=== PATIENT | male | born 1945 | race Caucasian/White ===

== ENCOUNTER → 2018-11-03 | Outpatient (CLI) | payer MEDICARE, OTHER ==
[~2018-11-03] MED LIST: IOPAMIDOL 370 MG/ML 200 ML INFUS..BTL INJ ONE; SODIUM CHLORIDE 0.9% 250ML 250 ML ONE
[2018-11-03 09:12] LABS: BLOOD UREA NITROGEN 17 mg/dL (7-26); BUN/CREATININE RATIO 20 (6-25); CREATININE, SERUM 0.84 mg/dL (0.72-1.25); EST GLOMERULAR FILTRATION RATE > 60 ML/MIN (60-)
--- NOTE | 2018-11-03 12:23 | Diagnostic Imaging Report ---
EXAM: CT Abdomen and Pelvis WITHOUT and WITH contrast INDICATION: Hematuria COMPARISON: None. TECHNIQUE: Abdomen and pelvis were scanned utilizing a multidetector helical scanner from the lung base to the pubic symphysis before and after administration of IV contrast. Coronal and sagittal reformations were obtained. CT urogram protocol was performed. Axial imaging was performed prone. Volume rendered 3-d imaging of the kidneys and bladder was created. Dose modulation, iterative reconstruction, and/or weight based adjustment of the mA/kV was utilized to reduce the radiation dose to as low as reasonably achievable. IV CONTRAST: 100 mL of Isovue-370 ORAL CONTRAST: 900 cc water RADIATION DOSE: Total DLP: 1716.74 mGy*cm Estimated effective dose: (DLP x 0.015 x size factor) mSv COMPLICATIONS: None FINDINGS: LINES and TUBES: None. LOWER THORAX: Lung bases clear with dependent lower lobe atelectasis. Borderline cardiomegaly with extensive coronary artery calcification noted. HEPATOBILIARY: No focal hepatic lesions. No biliary ductal dilation. GALLBLADDER: No radio-opaque stones or sludge. No wall thickening. SPLEEN: No splenomegaly. PANCREAS: No focal masses or ductal dilatation. ADRENALS: No adrenal nodules KIDNEYS/URETERS: Kidneys enhance symmetrically. No hydronephrosis. There are bilateral subcentimeter cortical hypodensities, measuring 0.7 and 0.6 cm at the upper pole right kidney, and 0.6 cm at the anterior midportion left kidney. There are additional smaller hypodensities as well. These are too small to fully characterize but likely represent small renal cysts. No solid or enhancing mass identified. There are central calcifications in both kidneys likely representing vascular calcifications. 2 adjacent rounded 4 mm calcifications at the midportion of the right kidney (series 3, image 80) may represent nonobstructing intrarenal calculi on the right. The ureters are well opacified bilaterally without dilatation or calculus. GI TRACT: No abnormal distention, wall thickening, or evidence of bowel obstruction. There is a large volume of retained stool in the colon and particularly in the rectum which may reflect constipation. There are scattered sigmoid diverticula with no CT evidence for acute diverticulitis. A small portion of nondilated transverse colon extends into the ventral hernia in the upper abdomen. Appendix is normal. PELVIC ORGANS/BLADDER: Urinary bladder unremarkable. No bladder calculi seen. LYMPH NODES: No lymphadenopathy. VESSELS: The abdominal aorta is atherosclerotic. There is an infrarenal abdominal aortic aneurysm measuring 3.1 x 3.4 cm diameter. Originating at this level there is an aorto bifemoral bypass which is patent. 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 There are stents in the bilateral occluded [place] common iliac arteries. The IVC is unremarkable. The portal system is not well evaluated due to bolus timing but is patent. PERITONEUM / RETROPERITONEUM: No pneumoperitoneum or ascites. BONES: There are wire sternotomy sutures. There are degenerative changes in the lumbar spine with age indeterminate 40% compression of the L4 vertebral body and marked disc space narrowing at multiple levels. SOFT TISSUES: Superficial surrounding soft tissue shows a small umbilical hernia containing fat. There is a fat-containing ventral hernia on the right just above the umbilicus. In the upper abdomen there is a ventral hernia with rectus muscle diastases containing a small portion of the transverse colon. There is a small fat-containing left inguinal hernia. Subcutaneous tissues at the level of the scrotum are prominent, likely due to prone positioning. IMPRESSION: 1. No hydronephrosis or hydroureter. 2. Calcifications in the central portions of both kidneys are mainly vascular. There are two 4-mm calcifications in the right kidney that are indeterminate and may be vascular or may represent nonobstructing intrarenal calculi. 3. Scattered subcentimeter renal cortical hypodensities, too small to fully characterize but likely representing small cysts. 4. 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 5. Several small ventral hernias, including rectus diastases containing a small portion of nondilated transverse colon. Signed by: Dr. Lucas Fernando M.D. on 11/03/2018 12:20 PM
--- NOTE | 2018-11-03 14:59 | Diagnostic Imaging Report ---
MRI BRAIN WO HISTORY: Memory loss COMPARISON: None. TECHNIQUE: Axial T2, sagittal 3-D FSPGR T1, axial T2/FLAIR, axial gradient echo (or susceptibility weighted), and axial diffusion weighted MR images of the brain were obtained without contrast. A total of 6 image series were cemented. DISCUSSION: Scalp/bone marrow: Unremarkable. Brain sulci: Prominent. Ventricles: Compensatory dilatation. Extra-axial spaces: No masses or fluid collections. Parenchyma: Scattered T2/FLAIR hyperintense foci throughout the supratentorial white matter are likely chronic microvascular ischemic changes. A few associated small old lacunar infarcts are seen in the bilateral deep white matter. Focal encephalomalacia along the right superior frontal sulcus is likely due to remote infarct. Mild symmetric globi pallidi magnetic susceptibility is likely due to age-related mineralization. Otherwise, no mass, hemorrhage, or acute vascular insults. Vessels: Normal flow voids in major arteries and veins. Sellar/Suprasellar region: No abnormalities. Craniocervical junction: There are prominent degenerative changes in the upper cervical spine. Incidental findings: None. IMPRESSION: 1. No acute intracranial abnormalities. 2. Generalized cerebral volume loss. Mild to moderate supratentorial chronic microvascular ischemic change. 3. 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 Signed by: Dr. Alejandro Paz M.D. on 11/03/2018 2:55 PM
== END ==
LOC: CT 08:13
PROVIDERS: ATTEND Psychiatry & Neurology Neurology
DX: R31.29 Other microscopic hematuria (principal); K43.9 Ventral hernia without obstruction or gangrene; N28.89 Other specified disorders of kidney and ureter; R41.3 Other amnesia
CPT/HCPCS: 36415; 70551; 74178; 82565; 84520; J7050; Q9967

== ENCOUNTER → 2019-01-19 | Day surgery (SDC) | payer MEDICARE, OTHER ==
[2019-01-18 12:11] LABS: BASOPHILS % 0.5 % (0.0-1.0); EOSINOPHILS # (AUTO) 0.1 (0.0-0.4); EOSINOPHILS % 1.3 % (0.0-6.0); HEMATOCRIT 42.2 % (38.2-49.6); HEMOGLOBIN 13.4 g/dL (14.0-18.0); LYMPHOCYTES # (AUTO) 0.9 (1.0-3.2); LYMPHOCYTES % 14.5 % (18.0-39.1); MEAN CORPUSCULAR HEMOGLOBIN 30.5 pg (28-32); MEAN CORPUSCULAR HGB CONC 31.8 g/dL (31-35); MEAN CORPUSCULAR VOLUME 95.9 fL (81-99); MONOCYTES # (AUTO) 0.6 (0.2-0.8); MONOCYTES % 10.1 % (4.4-11.3); NEUTROPHILS # (AUTO) 4.3 (2.1-6.9); NEUTROPHILS % 73.1 % (38.7-80.0); PLATELET COUNT 106 x10e3/uL (140-360); RED CELL DISTRIBUTION WIDTH 12.8 % (11.7-14.4)
[2019-01-18 12:25] LABS: ANION GAP 9.2 mmol/L (8-16); BLOOD UREA NITROGEN 19 mg/dL (7-26); BUN/CREATININE RATIO 20 (6-25); CALCIUM 8.9 mg/dL (8.4-10.2); CARBON DIOXIDE 27 mmol/L (22-29); CHLORIDE 107 mmol/L (98-107); CREATININE, SERUM 0.93 mg/dL (0.72-1.25); EST GLOMERULAR FILTRATION RATE > 60 ML/MIN (60-); GLUCOSE 120 mg/dL (74-118); POTASSIUM 4.2 mmol/L (3.5-5.1); SODIUM 139 mmol/L (136-145)
--- NOTE | 2019-01-18 12:34 | Diagnostic Imaging Report ---
Exam: Abdominal film Clinical History: Renal stones Comparison: CT abdomen and pelvis hematuria protocol 11/03/2018 DISCUSSION: Multiple subcentimeter calcifications are identified projecting over both renal shadows. No calcifications project over the expected ureteral courses or urinary bladder. Bilateral common iliac stents are noted. Regional skeletal structures are intact with multilevel degenerative disc changes. No mass effect or organomegaly. Bowel gas pattern is nonobstructive. IMPRESSION: Subcentimeter calcifications project over both kidneys, shown to represent a combination of vascular calcifications and suspected nonobstructing collecting system calculi as previously discussed. Signed by: Dr. Diego Larry M.D. on 01/18/2019 12:30 PM
--- NOTE | 2019-01-18 12:36 | Diagnostic Imaging Report ---
EXAMINATION: PA and lateral views of the chest. COMPARISON: None CLINICAL HISTORY: Preoperative study for renal stone surgery DISCUSSION: The lungs are well-inflated and without focal consolidation, pleural effusion, or pneumothorax. Hazy opacity along the cardiac apex shown to represent prominent epicardial fat on comparison CT hematuria protocol 11/03/2018. Postsurgical changes of median sternotomy with borderline enlargement of the cardiac silhouette. No overt pulmonary edema. No acute osseous abnormality. IMPRESSION: No acute cardiopulmonary abnormalities. Signed by: Dr. Diego Larry M.D. on 01/18/2019 12:33 PM
[~2019-01-19] MED LIST changes: +ASPIR-LOW81 MG; +ATORVASTATIN PO; +BELLADONNA/OPIUM 60 MG SUPP PR ONE; +CEFTRIAXONE SOD 1 GM/NS 50 ML 50 ML IV ONE; +DEXAMETHASONE SOD PHOS INJ 4 MG/ML VIAL ONE; +DOXAZOSIN MESYLA2 MG PO; +EPHEDRINE SULFATE INJ 50 MG/10 ML SYR ONE; +FAMOTIDINE20 MG PO; +FENTANYL CITRATE/PF 100MCG/2 ML INJ ONE; -IOPAMIDOL 370 MG/ML 200 ML INFUS..BTL INJ ONE; +IOPAMIDOL 610MG/1ML 300 MG/ML VIAL IV ONE; +LIDOCAINE HCL 2% LOCAL INJ 5 ML SDV VIAL INJ ONE; +METOPROLOL SUCC25 MG; +ONDANSETRON HCL INJ 2MG/ML 2ML 2 MG/ML VIAL ONE; +PROPOFOL IV EMULSION 10 MG/ML 20 ML VIAL ONE; +SEVOFLURANE INHAL SOLN 250 ML PEN BTL ONE; -SODIUM CHLORIDE 0.9% 250ML 250 ML ONE
--- OUTSIDE RECORDS SUMMARY | 2019-01-19 05:08 | XMS REPORT ---
Author Author [facility] Address Unknown Phone Unavailable Care Team Providers Care Filenet Admin Name Role Phone NENO KEE Unavailable Unavailable ALANA HATHAWAY Unavailable Unavailable Problems This patient has no known problems. Allergies, Adverse Reactions, Alerts This patient has no known allergies or adverse reactions. Medications This patient has no known medications. Results Test Description Test Time Test Comments Text Results Atomic Results Result Comments CHEST 2 VIEWS 2019-01-18 12:31:00 [place] [address] Patient Name: TIFFANY YANG JR MR #: [id number] : 1945 Age/Sex: 73/M Req #: [id number] Adm Physician: Ordered by: NENO KEE MD Report #: [id number] Location: OR Room/Bed: Procedure: [id number] DX/CHEST 2 VIEWS Exam Date: Exam Time: REPORT STATUS: Signed EXAMINATION: PA and lateral views of the chest. COMPARISON: None CLINICAL HISTORY: Preoperative study for renal stone surgery DISCUSSION: The lungs are well-inflated and without focal consolidation, pleural effusion, or pneumothorax. Hazy opacity along the cardiac apex shown to represent prominent epicardial fat on comparison CT hematuria protocol 11/03/2018. Postsurgical changes of median sternotomy with borderline enlargement of the cardiac silhouette. No overt pulmonary edema. No acute osseous abnormality. IMPRESSION: No acute cardiopulmonary abnormalities. Signed by: Dr. Rayray Pryor M.D. on 01/18/2019 12:33 PM Dictated By: RAYRAY PRYOR MD 1233 Transcribed By: SONDRA on 01/18/19 1233 COPY TO: NENO KEE MD ABDOMEN-1VIEW (KUB) 2019-01-18 12:27:00 [place] [address] Patient Name: TIFFANY YANG JR MR #: [id number] : 1945 Age/Sex: 73/M Req #: [id number] Adm Physician: Ordered by: NENO KEE MD Report #: [id number] Location: OR Room/Bed: Procedure: [id number] DX/ABDOMEN-1VIEW (KUB) Exam Date: Exam Time: REPORT STATUS: Signed Exam: Abdominal film Clinical History: Renal stones Comp arison: CT abdomen and pelvis hematuria protocol 11/03/2018 DISCUSSION: Multiple subcentimeter calcifications are identified projecting over both renal shadows. No calcifications project over the expected ureteral courses or urinary bladder. Bilateral common iliac stents are noted. Regional skeletal structures are intact with multilevel degenerative disc changes. No mass effect or organomegaly. Bowel gas pattern is nonobstructive. IMPRESSION: Subcentimeter calcifications project over both kidneys, shown to represent a combination of vascular calcifications and suspected nonobstructing collecting system calculi as previously discussed. Signed by: Dr. Rayray Pryor M.D. on 01/18/2019 12:30 PM Dictated By: RAYRAY PRYOR MD 1230 Transcribed By: SONDRA on 01/18/19 1230 COPY TO: NENO KEE MD MRI BRAIN WO 2018-11-03 14:49:00 [place] [address] Patient Name: TIFFANY YANG JR MR #: [id number] : 1945 Age/Sex: 73/M Req #: [id number] Adm Physician: Ordered by: ALANA HATHAWAY MD Report #: [id number] Location: CT Room/Bed: Procedure: [id number] MRI/MRI BRAIN WO Exam Date: 11/03/18 Exam Time: 1031 REPORT STATUS: Signed MRI BRAIN WO HISTORY: Memory loss COMPARISON: None. TECHNIQUE: Axial T2, sagittal 3-D FSPGR T1, axial T2/FLAIR, axial gradient echo (or susceptibility weighted), and axial diffusion weighted MR images of the brain were obtained without contrast. A total of 6 image series were cemented. DISCUSSION: Scalp/bone marrow: Unremarkable. Brain sulci: Prominent. Ventricles: Compensatory dilatation. Extra-axial spaces: No masses or fluid collections. Parenchyma: Scattered T2/FLAIR hyperintense foci throughout the supratentorial white matter are likely chronic microvascular ischemic changes. A few associated small old lacunar infarcts are seen in the bilateral deep white matter. Focal encephalomalacia along the right superior frontal sulcus is likely due to remote infarct. Mild symmetric globi pallidi magnetic susceptibility is likely due to age- related mineralization. Otherwise, no mass, hemorrhage, or acute vascular insults. Vessels: Normal flow voids in major arteries and veins. Sellar/Suprasellar region: No abnormalities. Craniocervical junction: There are prominent degenerative changes in the upper cervical spine. Incidental findings: None. IMPRESSION: 1. No acute intracranial abnormalities. 2. Generalized cerebral volume loss. Mild to moderate supratentorial chronic microvascular ischemic change. 3. 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 Signed by: Dr. Alejandro Paz M.D. on 11/03/2018 2:55 PM Dictated By: ALEJANDRO PAZ MD 54 Transcribed By: SONDRA on 11/03/181454 COPY TO: ALANA HATHAWAY MD CT ABDOMEN/PELVIS WOW 2018-11-03 10:57:00 [place] [address] Patient Name: TIFFANY YANG JR MR #: [id number] : 1945 Age/Sex: 73/M Req #: [id number] Adm Physician: Ordered by: NENO KEE MD Report #: [id number] Location: CT Room/Bed: Procedure: [id number] CT/CT ABDOMEN/PELVIS WOW Exam Date: 11/03/18 Exam Time: 0940 REPORT STATUS: Signed EXAM: CT Abdomen and Pelvis WITHOUT and WITH contrast INDICATION: Hematuria COMPARISON: None. TECHNIQUE: Abdomen and pelvis were scanned utilizing a multidetector helical scanner from the lung base to the pubic symphysis before and after administration of IV contrast. Coronal and sagittal reformations were obtained. CT urogram protocol was performed. Axial imaging was performed prone. Volume rendered 3-d imaging of the kidneys and bladder was created. Dose modulation, iterative reconstruction, and/or weight based adjustment of the mA/kV was utilized to reduce the radiation dose to as low as reasonably achievable. IV CONTRAST: 100 mL of Isovue-370 ORAL CONTRAST: 900 cc water RADIATION DOSE: Total DLP: 1716.74 mGy*cm Estimated effective dose: (DLP x 0.015 x size factor) mSv COMPLICATIONS: None FINDINGS: LINES and TUBES: None. LOWER THORAX: Lung bases clear with dependent lower lobe atelectasis. Borderline cardiomegaly with extensive coronary artery calcification noted. HEPATOBILIARY: No focal hepatic lesions. No biliary ductal dilation. GALLBLADDER: No radio-opaque stones or sludge. No wall thickening. SPLEEN: No splenomegaly. PANCREAS: No focal masses or ductal dilatation. ADRENALS: No adrenal nodules KIDNEYS/URETERS: Kidneys enhance symmetrically. No hydronephrosis. There are bilateral subcentimeter cortical hypodensities, measuring 0.7 and 0.6 cm at the upper pole right kidney, and 0.6 cm at the anterior midportion left kidney. There are additional smaller hypodensities as well. These are too small to fully characterize but likely represent small renal cysts. No solid or enhancing mass identified. There are central calcifications in both kidneys likely representing vascular calcifications. 2 adjacent rounded 4 mm calcifications at the midportion of the right kidney (series 3, image 80) may represent nonobstructing intrarenal calculi on the right. The ureters are well opacified bilaterally without dilatation or calculus. GI TRACT: No abnormal distention, wall thickening, or evidence of bowel obstruction. There is a large volume of retained stool in the colon and particularly in the rectum which may reflect constipation. There are scattered sigmoid diverticula with no CT evidence for acute diverticulitis. A small portion of nondilated transverse colon extends into the ventral hernia in the upper abdomen. Appendix is normal. PELVIC ORGANS/BLADDER: Urinary bladder unremarkable. No bladder calculi seen. LYMPH NODES: No lymphadenopathy. VESSELS: The abdominal aorta is atherosclerotic. There is an infrarenal abdominal aortic aneurysm measuring 3.1 x 3.4 cm diameter. Originating at this level there is an aorto bifemoral bypass which is patent. 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 There are stents in the bilateral occluded [place] common iliac arteries. The IVC is unremarkable. The portal system is not well evaluated due to bolus timing but is patent. PERITONEUM / RETROPERITONEUM: No pneumoperitoneum or ascites. BONES: There are wire sternotomy sutures. There are degenerative changes in the lumbar spine with age indeterminate 40% compression of the L4 vertebral body and marked disc space narrowing at multiple levels. SOFT TISSUES: Superficial surrounding soft tissue shows a small umbilical hernia containing fat. There is a fat- containing ventral hernia on the right just above the umbilicus. In the upper abdomen there is a ventral hernia with rectus muscle diastases containing a small portion of the transverse colon. There is a small fat-containing left inguinal hernia. Subcutaneous tissues at the level of the scrotum are prominent, likely due to prone positioning. IMPRESSION: 1. No hydronephrosis or hydroureter. 2. Calcifications in the central portions o f both kidneys are mainly vascular. There are two 4-mm calcifications in the right kidney that are indeterminate and may be vascular or may represent nonobstructing intrarenal calculi. 3. Scattered subcentimeter renal cortical hypodensities, too small to fully characterize but likely representing small cysts. 4. 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 5. Several small ventral hernias, including rectus diastases containing a small portion of nondilated transverse colon. Signed by: Dr. Mikie Weaver M.D. on 11/03/2018 12:20 PM Dictated By: MIKIE WEAVER MD 1220 Transcribed By: SONDRA on 11/03/18 1220 COPY TO: NENO KEE MD
[2019-01-19 09:15] VITALS: BP 163/89
--- NOTE | 2019-01-27 05:01 | Operative Report ---
DATE OF PROCEDURE: 01/19/2019 SURGEON: Kiko Lindsey MD PREOPERATIVE DIAGNOSES: 1. Right nephrolithiasis. 2. Microhematuria. POSTOPERATIVE DIAGNOSES: 1. Right nephrolithiasis. 2. Microhematuria. 3. Bulbar urethral stricture. OPERATION PERFORMED: 1. Cystourethroscopy with bilateral ureteral catheterization and retrograde ureteropyelography (separate procedure performed for the microhematuria workup). 2. Interpretation of retrograde ureteropyelography. 3. Right-sided extracorporeal shockwave lithotripsy (separate procedure performed for the nephrolithiasis done in a staged fashion). 4. Cystourethroscopy with calibration and dilation of bulbar urethral stricture. ANESTHESIA: General. COMPLICATIONS: None. CLINICAL SUMMARY: Aki Delgado junior is a 73-year-old man with the above preoperative diagnoses. He is brought for the above procedures. He is aware of the risks of bleeding, infection, injury to adjacent structures, need for additional procedures and elected to proceed. OPERATIVE PROCEDURE IN DETAIL: Informed consent was verified. Aki Delgado junior was properly identified, taken to the operating room, placed on the lithotripsy table in supine position. Anesthesia was uneventfully begun. The patient's nephrolithiasis was not easily visualized, therefore he was repositioned in dorsal lithotomy position with all pressure points well padded. His genitalia were prepared and draped in usual sterile fashion. The 22.5-Azeri cystoscope sheath with the visual obturator in place was atraumatically inserted into the patient's urethra was guided down to unremarkable distal urethra to the bulbar region, where there was a stricture noted. We dilated across this stricture gently to the size of the cystoscope sheath, which was 22.5-Azeri in size. We then passed normal sphincteric region, went through the prostate bed, which was significant for bilobar prostatic hypertrophy with a very elevated median bar and visual obstruction and kissing lateral lobes. We entered the patient's bladder, which exhibited grade 2 trabeculations, but no tumors, no stones, no diverticula, normally positioned and configured ureteral orifices were identified. A ureteral catheter was used to cannulate the left ureter and retrograde ureteropyelography was performed. It was then inserted in the right ureter and retrograde ureteropyelography was performed. Interpretation of retrograde ureteropyelography: Contrast was instilled in retrograde fashion bilaterally. We identified the two stones in the right kidney, has a filling defect at the level of the mid calyx. The cluster of two stones measured a total of 8 mm in size. With fluoroscopic guidance with the aid of contrast, a total of 3000 shocks were delivered to the patient's stones. The patient's bladder was drained. The ureteral catheter was withdrawn. Digital rectal examination performed upon placement of belladonna and opium suppository revealed 35 g prostate that is smooth, non-fluctuant without any nodules. The patient was then uneventfully reversed from anesthesia and taken to recovery room in stable condition. There were no complications of the procedure. He tolerated the procedure well. Expressive postop instructions were given. We will follow the patient up in the office. Kiko Lindsey MD [place]/MODL /[id number] cc: Chino Grady MD
== END | disposition home or self-care (01) ==
LOC: OR 05:00
PROVIDERS: ATTEND Urology
DX: N20.0 Calculus of kidney (principal); N35.912 Unspecified bulbous urethral stricture, male; N32.89 Other specified disorders of bladder; J44.9 Chronic obstructive pulmonary disease, unspecified; I49.3 Ventricular premature depolarization; I10 Essential (primary) hypertension; E78.00 Pure hypercholesterolemia, unspecified; I25.810 Atherosclerosis of coronary artery bypass graft(s) without angina pectoris; Z88.8 Allergy status to other drugs, medicaments and biological substances; Z01.810 Encounter for preprocedural cardiovascular examination; Z01.812 Encounter for preprocedural laboratory examination; Z01.818 Encounter for other preprocedural examination; Z79.82 Long term (current) use of aspirin; Z68.32 Body mass index [BMI] 32.0-32.9, adult; Z86.73 Personal history of transient ischemic attack (TIA), and cerebral infarction without residual deficits; Z95.1 Presence of aortocoronary bypass graft; Z95.5 Presence of coronary angioplasty implant and graft; Z87.891 Personal history of nicotine dependence
CPT/HCPCS: 36415; 50590; 52281; 71046; 74018; 80048; 83970; 84550; 85025; 93005; C1758; J0696; J1100; J2001; J2405; J2704; Q9967

== ENCOUNTER → 2019-05-13 | Outpatient (CLI) | payer MEDICARE, OTHER ==
[~2019-05-13] MED LIST changes: -BELLADONNA/OPIUM 60 MG SUPP PR ONE; -CEFTRIAXONE SOD 1 GM/NS 50 ML 50 ML IV ONE; -DEXAMETHASONE SOD PHOS INJ 4 MG/ML VIAL ONE; -EPHEDRINE SULFATE INJ 50 MG/10 ML SYR ONE; -FENTANYL CITRATE/PF 100MCG/2 ML INJ ONE; -IOPAMIDOL 610MG/1ML 300 MG/ML VIAL IV ONE; -LIDOCAINE HCL 2% LOCAL INJ 5 ML SDV VIAL INJ ONE; -ONDANSETRON HCL INJ 2MG/ML 2ML 2 MG/ML VIAL ONE; -PROPOFOL IV EMULSION 10 MG/ML 20 ML VIAL ONE; -SEVOFLURANE INHAL SOLN 250 ML PEN BTL ONE
--- NOTE | 2019-05-13 09:53 | Diagnostic Imaging Report ---
Exam: KUB Comparison: January 18, [address] abdomen and pelvis Clinical history: Renal calculus Findings: The prior mentioned vascular calcifications involving the left kidney is again noted without significant changes. The right renal shadows partially obscured by bowel gas. No radiographic evidence of radiopaque stones noted in this region. Degenerative changes are again noted throughout the lumbar spine. There is nonobstructive bowel gas pattern. Next Impression: 1. No significant interval changes. No definite radiographic evidence of radiopaque nephrolithiasis. Signed by: Dr. Abimael Hubbard MD on 05/13/2019 9:49 AM
== END ==
LOC: RAD 08:47
PROVIDERS: ATTEND Urology
DX: N20.0 Calculus of kidney (principal)
CPT/HCPCS: 74018

== ENCOUNTER → 2020-08-18 | Outpatient (CLI) | payer MEDICARE, OTHER ==
[~2020-08-18] MED LIST changes: +HYDROCHLOROTHIA25 MG PO; +TESTOSTERO200 MG/1 M INJ
--- NOTE | 2020-08-18 10:59 | Diagnostic Imaging Report ---
KUB History: Right lower quadrant pain Comparison: None Findings: Nonobstructive bowel gas pattern. No pneumatosis. Small calcific densities overlying both kidneys especially the left side. Please note the kidneys are obscured by the bowel contents. No calcific density along the course of the ureters. No large ascites. No large abdominal mass. Lung bases clear. Degenerative changes at L1-L2 level and lesser degree at other levels. Vascular calcification. Casing common iliac artery stents. Impression: The kidneys are obscured by bowel contents. The there is suggestion of bilateral renal calculi. Appears similar to a previous x-ray done on 01/18/2019. Signed by: Guillermo Coyle MD on 08/18/2020 10:55 AM
== END ==
LOC: RAD 09:12
PROVIDERS: ATTEND Urology
DX: N20.0 Calculus of kidney (principal)
CPT/HCPCS: 74018

== ENCOUNTER → 2022-02-22 | Outpatient (CLI) | payer MEDICARE, OTHER | LOC: RAD 14:04 | PROVIDERS: ATTEND Internal Medicine Cardiovascular Disease | DX: R06.02 Shortness of breath (principal) | CPT/HCPCS: 71046 ==

== ENCOUNTER → 2022-04-12 | Outpatient (CLI) | payer MEDICARE, OTHER | LOC: CT 15:36 | PROVIDERS: ATTEND Internal Medicine | DX: R06.09 Other forms of dyspnea (principal) | CPT/HCPCS: 71250 ==